=== PATIENT | male | born 1940 | race Caucasian/White ===

== ENCOUNTER → 2016-10-10 | Outpatient (CLI) | payer OTHER ==
[~2016-10-10] MED LIST: DIOV160T60; OXYC-360 PO; [UNRECOGNIZED DRUG - OTHER]
--- NOTE | 2016-10-10 17:33 | RADRPT ---
EXAM DATE/TIME: 10/10/2016 00:00 [place] COMPARISON: No previous studies available for comparison. INDICATIONS : PVD TECHNIQUE: Five-station segmental examination of the lower extremities was performed pre and post extercise. Pulsed-cuff waveform tracings and pressures were recorded. Ankle-brachial indices and toe-brachial indices were calculated. PRESSURES (mmHg): Pre Exercise: Brachial (arm): Right 150 Left 138 Ankle: Right 161 Left 164 JOVANNY: Right 1.07 Left 1.09 TBI: Right 1.04 Left 0.97 Post Exercise: Brachial (arm): Right 174 Ankle: Right 201 Left 175 PULSED CUFF WAVEFORMS: Demonstrate normal amplitude bilaterally. CONCLUSION: Unremarkable segmental evaluation of the lower extremities. Nveille Hendrix MD on October 10, 2016 at 17:31 Board Certified Radiologist. This report was verified electronically.
== END ==
LOC: HCAV 12:44
DX: I73.9 Peripheral vascular disease, unspecified (principal)
CPT/HCPCS: 93924